=== PATIENT | male | born 1955 | race Caucasian/White ===

== ENCOUNTER 2017-07-02 22:00 | Emergency (ER) | payer OTHER ==
[~2017-07-02] VITALS: Ht 165.1 cm; Wt 62.3 kg
[~2017-07-02 22:00] MED LIST: B-1100 MG PO; CENTRUM1 TAB PO; FOLIC ACID 11 MG/TA1 PO; KLONOPIN 0.5MG0.5 MG PO; NORVASC 5MG5 MG/TAB PO; TOPROL XL200 MG PO; ZESTRIL40 MG PO
[2017-07-02 22:01] VITALS: TEMP 97.5
[2017-07-02] MEDS ORDERED: POTASSIUM GLUC595 M1 PO (22:11)
[2017-07-02] MEDS ORDERED: CALCIUM GLUCON500 MG ×2 (22:12→22:13)
[2017-07-02] MEDS ORDERED: TOPROL XL100 MG PO (22:13)
[2017-07-02 22:26] LABS: BASO % 0.1 % (0.0-2.0); GRAN # 6.7 (1.4-6.5); GRAN % 88.9 % (42.2-75.2); LYMPH # 0.4 (1.2-3.4); LYMPH % 5.6 % (20.0-51.0); MEAN CELL VOLUME 99 fl (80.0-100.0); MEAN CORPUSCULAR HGB CONC 34 g/dl (33.0-37.0); MEAN PLATELET VOLUME 9.6 fl (7.4-10.4); MONO # 0.4 (0.1-0.6); MONO % 4.9 % (1.7-9.3); PLATELET COUNT 144 K/mm3 (130-400); RED BLOOD COUNT 2.96 M/mm3 (4.20-5.60)
[2017-07-02 22:27] LABS: HEMATOCRIT 29.2 % (42.0-52.0); HEMOGLOBIN 9.8 g/dl (13.5-18.0); MEAN CORPUSCULAR HEMOGLOBIN 33 pg (27.0-31.0)
[2017-07-02 22:36] LABS: ALANINE AMINOTRANSFERASE 52 U/L (21-72); ALBUMIN 3.7 gm/dL (3.5-5.0); ALKALINE PHOSPHATASE 151 U/L (50-136); ANION GAP 16 mmol/L (7-16); AST,SGOT 147 U/L (15-37); BILIRUBIN,TOTAL 1.9 mg/dL (0.0-1.0); BLOOD UREA NITROGEN 15 mg/dL (9-20); CALCIUM 11.4 mg/dL (8.4-10.2); CARBON DIOXIDE 17 mmol/L (22-30); CHLORIDE 98 mmol/L (98-107); CREATININE, serum 0.75 mg/dL (0.66-1.25); GLUCOSE 138 mg/dL (74-106); MAGNESIUM 1.8 mg/dL (1.6-2.3); PHOSPHOROUS 1.2 mg/dL (2.5-4.5); SODIUM 131 mmol/L (137-145); TOTAL PROTEIN 7.5 gm/dL (6.4-8.2)
[2017-07-02 22:38] LABS: INR 1.1 (0.8-3.0); PROTHROMBIN TIME 13.3 SECONDS (9.7-12.8)
[2017-07-02 22:40] LABS: PARTIAL THROMBOPLASTIN TIME 25.9 SECONDS (26.0-37.0)
[2017-07-02 22:48] LABS: TROPONIN-I < 0.012 ng/mL (0.000-0.034)
[2017-07-02 23:16] LABS: LIPASE 15932 U/L (23-300)
[2017-07-03 01:39] VITALS: BP 136/86; PULSE 86
== END 2017-07-03 01:46 | disposition short-term general hospital (02) ==
LOC: COL.ER 22:00
PROVIDERS: Emergency Medicine
DX: S06.5X0A Traumatic subdural hemorrhage without loss of consciousness, initial encounter (principal); I10 Essential (primary) hypertension; I95.1 Orthostatic hypotension; E87.6 Hypokalemia; E87.1 Hypo-osmolality and hyponatremia; E83.51 Hypocalcemia; E83.39 Other disorders of phosphorus metabolism; E86.0 Dehydration; F17.210 Nicotine dependence, cigarettes, uncomplicated; W18.39XA Other fall on same level, initial encounter; W22.8XXA Striking against or struck by other objects, initial encounter
CPT/HCPCS: J3411; J7030; J7040

== ENCOUNTER 2018-01-28 23:42 | Observation (INO) | payer OTHER ==
[~2018-01-28] VITALS: Ht 167.6 cm; Wt 62.0 kg
[~2018-01-28 23:42] MED LIST changes: +CALCIUM GLUCON500 MG; +LOPRESSOR100 MG PO; +POTASSIUM GLUC595 M1 PO
[2018-01-28 23:57] LABS: BASO % 0.4 % (0.0-2.0); EOS # 0.1 (0.0-0.7); EOS % 1.4 % (0-4.0); GRAN # 4.9 (1.4-6.5); GRAN % 61.4 % (42.2-75.2); HEMATOCRIT 32.8 % (42.0-52.0); HEMOGLOBIN 11.5 g/dl (13.5-18.0); LYMPH % 24.8 % (20.0-51.0); MEAN CELL VOLUME 93 fl (80.0-100.0); MEAN CORPUSCULAR HEMOGLOBIN 33 pg (27.0-31.0); MEAN CORPUSCULAR HGB CONC 35 g/dl (33.0-37.0); MONO # 0.9 (0.1-0.6); MONO % 11.4 % (1.7-9.3); PLATELET COUNT 195 K/mm3 (130-400); RED BLOOD COUNT 3.54 M/mm3 (4.20-5.60); REDCELL DISTRIBUTION WIDTH-CV 13.6 % (11.5-14.5)
[2018-01-29 00:02] LABS: INR 1.1 (0.8-3.0); PROTHROMBIN TIME 12.8 SECONDS (9.7-12.8)
[2018-01-29 00:04] LABS: PARTIAL THROMBOPLASTIN TIME 33.4 SECONDS (26.0-37.0)
[2018-01-29 00:07] LABS: ALBUMIN 3.6 gm/dL (3.5-5.0); BILIRUBIN,TOTAL 1.7 mg/dL (0.0-1.0); CALCIUM 8.1 mg/dL (8.4-10.2); CREATININE, serum 0.83 mg/dL (0.66-1.25); POTASSIUM 4.4 mmol/L (3.4-5.0); TOTAL PROTEIN 7.6 gm/dL (6.4-8.2)
[2018-01-29] MEDS ORDERED: MULTIVITAMIN SEN PO (00:07)
[2018-01-29] MEDS ORDERED: FOLIC ACID 40400 MCG PO (00:08)
[2018-01-29] MEDS ORDERED: K-PHOS ORIGINA500 MG PO (00:09)
[2018-01-29] MEDS ORDERED: ASPIRIN 81M81 MG/TA2 PO (00:10)
[2018-01-29] MEDS ORDERED: NATURE'S BLEND100 M2 PO (00:11)
[2018-01-29] MEDS ORDERED: CIALIS20 MG PO (00:12)
[2018-01-29] MEDS ORDERED: K-DUR20 MEQ PO (00:12)
[2018-01-29] MEDS ORDERED: LASIX 20MG TABL20 MG PO (00:14)
[2018-01-29] MEDS ORDERED: PEPCID 20MG TAB20 MG PO (00:14)
[2018-01-29] MEDS ORDERED: CORDARONE200 MG/TAB PO (00:15)
[2018-01-29 03:10] VITALS: BP 121/60; PULSE 72; TEMP 98.1
[2018-01-29 07:32] VITALS: BP 115/54; PULSE 61; TEMP 98.1
[2018-01-29 11:19] VITALS: BP 138/63; PULSE 74; TEMP 98.3
[2018-01-29] MEDS ORDERED: AMOXICILLIN 8751 TAB PO (12:30)
[2018-01-29] MEDS ORDERED: MOTRIN 600600 MG/TAB PO (14:47)
[2018-01-29] MEDS ORDERED: ROXICODONE 55 MG/TAB PO (14:47)
[2018-01-29 16:10] VITALS: BP 176/65; PULSE 81; TEMP 98.3
[2018-01-29 20:09] VITALS: BP 168/68; PULSE 81; TEMP 97.8
[2018-01-29 23:17] VITALS: BP 169/73; PULSE 79; TEMP 99.3
[2018-01-30 03:20] VITALS: BP 152/66; PULSE 68; TEMP 98.7
[2018-01-30 07:46] VITALS: BP 165/72; PULSE 62; TEMP 98.4
[2018-01-30 11:26] VITALS: BP 161/68; PULSE 70; TEMP 98.4
[2018-01-30 15:48] VITALS: BP 155/70; PULSE 61; TEMP 98.7
[2018-01-30 19:48] VITALS: BP 159/63; PULSE 60; TEMP 98.2
[2018-01-30 23:52] VITALS: BP 156/65; PULSE 59; TEMP 98.2
[2018-01-31 03:08] VITALS: BP 168/70; PULSE 66; TEMP 97.9
[2018-01-31 08:00] VITALS: BP 160/74; PULSE 62; TEMP 98
[2018-01-31 11:42] VITALS: BP 154/61; PULSE 59; TEMP 98
[2018-01-31 15:45] VITALS: BP 151/67; PULSE 64; TEMP 98.2
[2018-01-31 19:38] VITALS: BP 150/72; PULSE 66; TEMP 98.5
[2018-01-31 21:55] VITALS: BP 165/74; PULSE 65; TEMP 98.2
[2018-02-01] VITALS (8 sets, daily range): BP systolic 119–170; BP diastolic 61–72; PULSE 58–66; TEMP 97.5–98.5
== END 2018-02-01 15:05 | disposition home or self-care (01) ==
LOC: COL.ER 23:42 → SURG 01-29 00:59
PROVIDERS: Emergency Medicine
DX: S02.32XA Fracture of orbital floor, left side, initial encounter for closed fracture (principal); S02.2XXA Fracture of nasal bones, initial encounter for closed fracture; S01.112A Laceration without foreign body of left eyelid and periocular area, initial encounter; W10.8XXA Fall (on) (from) other stairs and steps, initial encounter; F10.129 Alcohol abuse with intoxication, unspecified; Y90.8 Blood alcohol level of 240 mg/100 ml or more; Y92.009 Unspecified place in unspecified non-institutional (private) residence as the place of occurrence of the external cause; Z87.891 Personal history of nicotine dependence; R40.2413 Glasgow coma scale score 13-15, at hospital admission; E44.0 Moderate protein-calorie malnutrition; I10 Essential (primary) hypertension; Z79.899 Other long term (current) drug therapy; Z79.82 Long term (current) use of aspirin; I48.91 Unspecified atrial fibrillation
CPT/HCPCS: G0378; G8978-GP; G8979-GP; G8987-GO; G8988-GO; J2060; J2270; J7030

== ENCOUNTER 2018-12-25 16:33 | Inpatient (IN) | payer OTHER ==
[~2018-12-25] VITALS: Ht 165.1 cm; Wt 67.0 kg
[~2018-12-25 16:33] MED LIST changes: +AMOXICILLIN 8751 TAB PO; +ASPIRIN 81M81 MG/TA2 PO; +CIALIS20 MG PO; +CORDARONE200 MG/TAB PO; +FOLIC ACID 40400 MCG PO; +K-DUR20 MEQ PO; +K-PHOS ORIGINA500 MG PO; +LASIX 20MG TABL20 MG PO; +MOTRIN 600600 MG/TAB PO; +MULTIVITAMIN SEN PO; +NATURE'S BLEND100 M2 PO; +PEPCID 20MG TAB20 MG PO; +ROXICODONE 55 MG/TAB PO
[2018-12-25 17:36] LABS: HEMOGLOBIN 11.6 g/dl (13.5-18.0); MEAN CELL VOLUME 94 fl (80.0-100.0); MEAN CORPUSCULAR HEMOGLOBIN 33 pg (27.0-31.0); MEAN CORPUSCULAR HGB CONC 35 g/dl (33.0-37.0); MEAN PLATELET VOLUME 9.3 fl (7.4-10.4); PLATELET COUNT 235 K/mm3 (130-400); RED BLOOD COUNT 3.52 M/mm3 (4.20-5.60); REDCELL DISTRIBUTION WIDTH-CV 12.7 % (11.5-14.5)
[2018-12-25 17:38] LABS: HEMATOCRIT 32.9 % (42.0-52.0)
[2018-12-25 17:43] LABS: INR 1.5 (0.8-3.0); PROTHROMBIN TIME 17.7 SECONDS (9.7-12.8)
[2018-12-25 17:43] LABS: COLLECTION METHOD CLEAN CATCH
[2018-12-25 17:50] LABS: ALANINE AMINOTRANSFERASE 45 U/L (21-72); ALBUMIN 3.2 gm/dL (3.5-5.0); ALKALINE PHOSPHATASE 316 U/L (50-136); ANION GAP 15 mmol/L (7-16); AST,SGOT 155 U/L (15-37); BLOOD UREA NITROGEN 24 mg/dL (9-20); CALCIUM 8.2 mg/dL (8.4-10.2); CARBON DIOXIDE 20 mmol/L (22-30); GLUCOSE 81 mg/dL (74-106); LIPASE 139 U/L (23-300); MAGNESIUM 1.5 mg/dL (1.6-2.3); PHOSPHOROUS 4.5 mg/dL (2.5-4.5); POTASSIUM 4.7 mmol/L (3.4-5.0); SODIUM 121 mmol/L (137-145); TOTAL PROTEIN 8.2 gm/dL (6.4-8.2)
[2018-12-25 17:54] LABS: ALCOHOL(ethanol),MEDICAL < 10 mg/dL; CHLORIDE 87 mmol/L (98-107)
[2018-12-25 17:54] LABS: MUCOUS Present /lpf; PH 5 (5-8); SQUAMOUS EPITHELIAL 0-2 /hpf; URINE APPEARANCE Hazy; URINE BACTERIA None Seen /hpf; URINE BILIRUBIN Negative (NEGATIVE); URINE BLOOD 2+ (NEGATIVE); URINE COLOR Amber; URINE GLUCOSE Negative (NEGATIVE); URINE KETONE Negative (NEGATIVE); URINE LEUKOCYTE ESTERASE Negative (NEGATIVE); URINE NITRATE Negative (NEGATIVE); URINE PROTEIN(semi-quant) Negative (NEGATIVE); URINE RBC >50 /hpf; URINE UROBILINOGEN >=4.0 mg/dL (NEGATIVE)
[2018-12-25 18:00] LABS: BAND 21 % (0-10); LYMPHOCYTE 7 % (20.0-51.0); NEUTROPHILS 70 % (42.0-75.2); PLATELET ESTIMATE NORMAL (NORMAL)
[2018-12-25 18:17] LABS: C-REACTIVE PROTEIN 18.5 mg/dL (0.0-0.9)
[2018-12-25 19:26] LABS: ERYTHROCYTE SEDIMENTATION RATE 51 mm/hr (0-30)
--- NOTE | 2018-12-25 22:30 | NUR ---
Admitted to room 326 via stretcher from ER. Oriented to room and policy. Assessment complete. Seizure and withdrawl precautions initiated. Speech is slurred. Noted to have multiple scabs to upper extremities as well as bridge of nose. Bilateral lower extremities red, draining serosanguinous fluid- multiple ulcerations. Denies pain. Left side of scrotum/genitalia excoriated as well as rectal area. Poor historian-admission completed with as much info as providied. Spouse did call with medications but stated she wasnt sure if he took them all today or not. Patient states took at 0900. Call light within reach. Bed in low with alarm on.
[2018-12-25 23:42] VITALS: BP 124/85; PULSE 70; TEMP 97.7
[2018-12-25 23:45] VITALS: BP 152/71; PULSE 65; TEMP 97.8
[2018-12-26] VITALS (8 sets, daily range): BP systolic 97–125; BP diastolic 54–75; PULSE 59–70; TEMP 97.4–98.9
[2018-12-26 07:38] LABS: MEAN CELL VOLUME 95 fl (80.0-100.0); MEAN CORPUSCULAR HEMOGLOBIN 34 pg (27.0-31.0); MEAN CORPUSCULAR HGB CONC 36 g/dl (33.0-37.0); PLATELET COUNT 213 K/mm3 (130-400); RED BLOOD COUNT 3.25 M/mm3 (4.20-5.60); REDCELL DISTRIBUTION WIDTH-CV 12.8 % (11.5-14.5)
[2018-12-26 07:42] LABS: INR 1.5 (0.8-3.0); PROTHROMBIN TIME 17.9 SECONDS (9.7-12.8)
[2018-12-26 07:42] LABS: HEMATOCRIT 30.8 % (42.0-52.0)
[2018-12-26 07:49] LABS: ALBUMIN 2.8 gm/dL (3.5-5.0); BILIRUBIN,TOTAL 3.7 mg/dL (0.0-1.0); CALCIUM 7.4 mg/dL (8.4-10.2); CREATININE, serum 1.13 (0.66-1.25); MAGNESIUM 1.8 mg/dL (1.6-2.3); POTASSIUM 4.4 mmol/L (3.4-5.0); TOTAL PROTEIN 7.1 gm/dL (6.4-8.2)
[2018-12-26 09:03] LABS: BAND 13 % (0-10); LYMPHOCYTE 11 % (20.0-51.0); NEUTROPHILS 73 % (42.0-75.2)
[2018-12-26 09:05] LABS: PLATELET ESTIMATE NORMAL (NORMAL)
--- NOTE | 2018-12-26 10:00 | NUR ---
Patient alert and oriented, answers questions appropriately. See assessment. On alcohol detox protocol. Lungs decreased in bases, clear in upper lobes. BLE with redness and drainage noted, refuses to leave DIONNA wraps on legs. BLE pulses weak but palpable.
--- NOTE | 2018-12-26 15:00 | NUR ---
Patient returns from chest tube placement. Chest tube in place to left chest wall connected to LIS, bubbling noted. Left lungs decreased. Patient agitated and pulling at tube. Etoh detox score increased, ativan given.
--- NOTE | 2018-12-26 15:00 | NUR ---
WINSTON met with patient and his to discuss discharge plan. He currently lives at home with his . He reports that he drinks and is interested in detox and inpatient treatment. SW provided a list of options to them and they are going to look over it. WINSTON will follow up with them and send referrals for them.
[2018-12-26 17:54] LABS: CALCIUM 7.2 mg/dL (8.4-10.2); CREATININE, serum 1.07 (0.66-1.25); POTASSIUM 4.1 mmol/L (3.4-5.0)
--- NOTE | 2018-12-26 20:00 | NUR ---
Report received. 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 Assessment complete. Left chest tube to low continuous suction. Dressimg completely saturated and changed at this time. IV to right forearm infiltrated-edema kvyge-qstbdqs-vdjreuz-wont flush. Will attempt restart. Hallucinations picking at air. Tremors noted-restless. VS remain stable. Antibiotics held until new IV access.
[2018-12-27] VITALS (9 sets, daily range): BP systolic 90–125; BP diastolic 42–89; PULSE 68–84; TEMP 97.1–98.1
--- NOTE | 2018-12-27 05:00 | NUR ---
Water seal full at 1900-output for this shift so far has been 600-yellow with small clots. Changed at this time by XI Tobar. Tolerated well.
--- NOTE | 2018-12-27 08:00 | NUR ---
PATIENT IS DROWSY THIS MORNING, BUT AROUSES TO NAME. PATIENT IS A&OX3, PATIENT STATES THAT HE DOES NOT KNOW WHERE HE IS. VSS. GENERALIZED WEAKNESS NOTED. BOWEL SOUNDS ACTIVE ALL FOUR QUADRANTS. DYSPNEA AT RESTING WITH GRUNTING NOTED. O2 VIA NASAL CANNULA. LEFT LOWER LUNG LOBE DIMINISHE UPON AUSCULTATION. ALL LUNG RAYMUNDO COARSE UPON AUSCULTATION. LEFT CHEST TO TUBE WATERSEAL AT 20 CM OF SUCTION WITH YELLOW DRAINAGE PRESENT IN CANISTER. LEFT CHEST TUBE INCISION DRESSED WITH GAUZE & OCCLUSIVE TAPE AND IS CD&I. 3+ PITTING EDEMA TO BLE. 2+ EDEMA TO RIGHT HAND. 1+ EDEMA TO RIGHT HAND. 3+ EDEMA TO FEET BILATERALLY. REDNESS AND IRRITATION TO SACRUM NOTED. REDDENED RASH TO LEFT GROIN NOTED. REDDENED, OPEN, WEEPING SKIN TO BLE. LACERATION TO NOSE WITH CLOSED SCABS. DIFFUSE BRUSING OVER BODY NOTED. LEFT AC TO INT. CALL LIGHT WITHIN REACH. SEIZURE PADS IN PLACE. PATIENT DENIES ANY NEEDS AT THIS TIME.
[2018-12-27 08:20] LABS: HEMOGLOBIN 10.2 g/dl (13.5-18.0); MEAN CELL VOLUME 95 fl (80.0-100.0); MEAN CORPUSCULAR HEMOGLOBIN 33 pg (27.0-31.0); MEAN CORPUSCULAR HGB CONC 35 g/dl (33.0-37.0); MEAN PLATELET VOLUME 9.3 fl (7.4-10.4); PLATELET COUNT 176 K/mm3 (130-400); RED BLOOD COUNT 3.09 M/mm3 (4.20-5.60); REDCELL DISTRIBUTION WIDTH-CV 12.9 % (11.5-14.5)
[2018-12-27 08:22] LABS: HEMATOCRIT 29.3 % (42.0-52.0)
[2018-12-27 08:28] LABS: INR 1.5 (0.8-3.0); PROTHROMBIN TIME 17.2 SECONDS (9.7-12.8)
[2018-12-27 08:33] LABS: ALBUMIN 2.3 gm/dL (3.5-5.0); BILIRUBIN,TOTAL 2.6 mg/dL (0.0-1.0); CALCIUM 7.2 mg/dL (8.4-10.2); CREATININE, serum 1.63 (0.66-1.25); MAGNESIUM 1.8 mg/dL (1.6-2.3); POTASSIUM 4.7 mmol/L (3.4-5.0)
[2018-12-27 08:50] LABS: BAND 15 % (0-10); BASOPHIL 1 % (0-2); EOSINOPHIL 1 % (0-4); LYMPHOCYTE 8 % (20.0-51.0); NEUTROPHILS 72 % (42.0-75.2); PLATELET ESTIMATE NORMAL (NORMAL)
[2018-12-27 14:37] LABS: CREATININE, serum 1.89 (0.66-1.25)
--- NOTE | 2018-12-27 19:00 | NUR ---
REPORT GIVEN TO XI CAMPOS.
--- NOTE | 2018-12-27 20:00 | NUR ---
Report received. Assumed care for restaurant shift leader. Assessment complete. VS stable. Repositioned at this time with incontinent care. Chest tube to 20cm of suction. Serous return. Dressing C/D/I. Spouse here at this time. Very tearful stating she just cant believe it has come to this. States she is angry and feels bad for that. Did sit and talk with her for approx 20minutes reassuring her that her feelings are normal and to allow herself to work through them. States she wont let him come home unless he goes to rehab first. IV fluids infusing at 100ml/hr without difficulty. Edema noted to upper extremities. Coarse lung nuno bilat. O2 at 0.5l/NC. Not oriented at this time-occasional grunting and incoherent babble. Bed in low position. Call light within reach and alarm on. Will monitor.
--- NOTE | 2018-12-27 20:00 | NUR ---
Report received. Assumed care for manufacturing shift supervisor. Assessment complete. VS stable. Received ativan at 1800 for detox score of 6-slightly confused-responds to loud voice and touch. Water seal chest tube at 20cm suction. Clear yellow fluid. Noted to have edema to upper extremities. Incontinence care provided-large urine. Bilateral lower extremities draining as well-blisters ruptured.
--- NOTE | 2018-12-28 02:00 | NUR ---
Chest tube to water seal at this time per dr order.
[2018-12-28 04:00] VITALS: BP 98/53; PULSE 85; TEMP 97.6
--- NOTE | 2018-12-28 06:53 | NUR ---
Report given to XI Arechiga.
[2018-12-28 08:32] VITALS: BP 122/99; PULSE 88; TEMP 97.4
[2018-12-28 09:51] LABS: HEMATOCRIT 30.7 % (42.0-52.0); HEMOGLOBIN 10.7 g/dl (13.5-18.0); MEAN CELL VOLUME 96 fl (80.0-100.0); MEAN CORPUSCULAR HEMOGLOBIN 34 pg (27.0-31.0); MEAN CORPUSCULAR HGB CONC 35 g/dl (33.0-37.0); MEAN PLATELET VOLUME 8.8 fl (7.4-10.4); PLATELET COUNT 188 K/mm3 (130-400); RED BLOOD COUNT 3.19 M/mm3 (4.20-5.60); REDCELL DISTRIBUTION WIDTH-CV 13.4 % (11.5-14.5)
[2018-12-28 10:06] LABS: CALCIUM 7.3 mg/dL (8.4-10.2); CREATININE, serum 1.69 (0.66-1.25); POTASSIUM 4.1 mmol/L (3.4-5.0)
[2018-12-28 10:23] LABS: EOSINOPHIL 3 % (0-4); LYMPHOCYTE 11 % (20.0-51.0); NEUTROPHILS 81 % (42.0-75.2); PLATELET ESTIMATE NORMAL (NORMAL)
--- NOTE | 2018-12-28 11:13 | NUR ---
Pt resting in bed with eyes closed and even unlabored breathing. Audible course lung sounds. Pt is not able to comprehend to deep cough to help clear lungs. IV to left AC flushes with noted blood return. Bilateral lower extremities with open blisters of all stages from new to healing. O2 at 1 liter per NC. Chest tube to water seal with serous output. Seizure pads on all 4 side rails. Will continue to monitor
--- NOTE | 2018-12-28 11:36 | NUR ---
SW attended clinical rounding. Patient is improving but will need rehab at discharge as he is weak. SW made IPR screen referral. Will continue to follow.
--- NOTE | 2018-12-28 11:49 | NUR ---
Fabiola Bishop CNA assist with bed bath and linen change. Pt tolerated well, but did not wake up. Positioned to his right side. Bed alarm on and all side rails up with seizure pads on.
--- NOTE | 2018-12-28 12:15 | NUR ---
REPORT RECEIVED FROM FILIPPO LAYNE. CARE ASSUMED.
[2018-12-28 12:52] VITALS: BP 116/48; PULSE 77; TEMP 97.4
--- NOTE | 2018-12-28 13:30 | NUR ---
PT HAS MULTIPLE OPEN AREAS TO BILTERAL LOWER EXTREMITIES. AREA TO LEFT HEEL OPEN AND RED. PT RECENTLY DX WITH CELLULITIS. LEGS ARE REDDENED AND TENDER. NO EDEMA NOTED. LEFT LEG WRAPPED WITH DIONNA, COBAIN APPLIED TO RIGHT LEG.
[2018-12-28 15:59] VITALS: BP 111/42; PULSE 81; TEMP 98.9
--- NOTE | 2018-12-28 18:10 | NUR ---
PT HAS BREAKDOWN NOTED TO BILATERAL BUTT CHECKS NEAR RECTUM. AREA COVERED WITH FOAM MEPLIX PAD. PT HAS VERY MOIST, GURGLED SOUNDS UPON EXPIRATION. ATTEMPTED TO ENCOURAGE PATIENT TO COUGH HOWEVER PT NOT FOLLOWING COMMANDS. ATTEMPTED TO ORALLY SUCTION WITH YANKAUR BUT LITTLE SPUTUM RETURNED.
[2018-12-28 20:20] VITALS: BP 118/51; PULSE 91; TEMP 97.8
[2018-12-28 22:45] LABS: BASO # 0.1 (0.0-0.2); BASO % 0.4 % (0.0-2.0); EOS # 0.1 (0.0-0.7); EOS % 0.3 % (0-4.0); GRAN # 16.5 (1.4-6.5); GRAN % 84.1 % (42.2-75.2); HEMATOCRIT 29.5 % (42.0-52.0); HEMOGLOBIN 10.3 g/dl (13.5-18.0); LYMPH # 1.6 (1.2-3.4); LYMPH % 8.2 % (20.0-51.0); MEAN CELL VOLUME 96 fl (80.0-100.0); MEAN CORPUSCULAR HEMOGLOBIN 34 pg (27.0-31.0); MEAN CORPUSCULAR HGB CONC 35 g/dl (33.0-37.0); MONO # 1.1 (0.1-0.6); MONO % 5.6 % (1.7-9.3); PLATELET COUNT 162 K/mm3 (130-400); RED BLOOD COUNT 3.07 M/mm3 (4.20-5.60); REDCELL DISTRIBUTION WIDTH-CV 13.7 % (11.5-14.5)
[2018-12-28 22:56] LABS: ALBUMIN 2.4 gm/dL (3.5-5.0); BILIRUBIN,TOTAL 2.6 mg/dL (0.0-1.0); CALCIUM 7.2 mg/dL (8.4-10.2); CREATININE, serum 2.14 (0.66-1.25); POTASSIUM 4.1 mmol/L (3.4-5.0); TOTAL PROTEIN 6.3 gm/dL (6.4-8.2)
[2018-12-28 23:04] VITALS: BP 109/53; PULSE 94; TEMP 97.9
[2018-12-28 23:51] LABS: ARTERIAL BLD GAS TCO2 CT 12.6; ARTERIAL BLOOD GAS BASE EXCESS -11.4 (-2-2); ARTERIAL BLOOD GAS HCO3 11.9 meq/L (22-26); ARTERIAL BLOOD GAS PO2 71.1 mmHg (80-100); ARTERIAL BLOOD GAS pH 7.35 (7.35-7.45)
[2018-12-28 23:53] LABS: ARTERIAL BLOOD GAS PCO2 22.2 mmHg (35-45)
[2018-12-29] VITALS (583 sets, daily range): BP systolic 102–134; BP diastolic 42–64; PULSE 75–93; TEMP 9.5; O2SAT 80–100
--- NOTE | 2018-12-29 01:15 | NUR ---
At 2100 patient's oxygen saturation noted to be 84%. Oxygen increased to 4L and saturation noted to come up to 90% for a couple seconds, then fall and stay around 87-88%. RT and Nuris updated on patient condition. RT and Nuris in patient's room assessing patient. ABGs ordered and chest xray ordered and obtained. Oxygen at 6L via oxymask. Patient crackles and rhonchi heard without stethoscope. Chest tube to suction. Dr. Ny notified and ordered to place chest tube to 20cm suction and to obtain a chest xray one hour after suction started. Patient nonverbal at this time and does not open his eyes to verbal stimuli. When staff reposition patient, patient groans and will open his eyes slightly. Respiratory therapy provided deep suction, with this nurse as assist. Specimen sent to lab for cultures. Off-white colored sputum present. Patient has decreased audible crackles, but these returned about 30 minutes after suction completed. Repeat chest xray "not any better" per Nuris. Orders to send to ICU received. , Nicol updated via phone. States she will be in tomorrow morning. Report called to Phyllis in ICU. Patient transferred to ICU at 0130. Nuris at bedside. Patient a little more alert and will open eyes for a short period of time to verbal stimuli.
[2018-12-29 06:56] LABS: HEMOGLOBIN 10.1 g/dl (13.5-18.0); MEAN CELL VOLUME 99 fl (80.0-100.0); MEAN CORPUSCULAR HEMOGLOBIN 34 pg (27.0-31.0); MEAN CORPUSCULAR HGB CONC 34 g/dl (33.0-37.0); MEAN PLATELET VOLUME 9.2 fl (7.4-10.4); PLATELET COUNT 162 K/mm3 (130-400); RED BLOOD COUNT 2.99 M/mm3 (4.20-5.60)
[2018-12-29 06:59] LABS: HEMATOCRIT 29.5 % (42.0-52.0)
[2018-12-29 07:10] LABS: ALBUMIN 2.4 gm/dL (3.5-5.0); BILIRUBIN,TOTAL 2.6 mg/dL (0.0-1.0); CALCIUM 7.3 mg/dL (8.4-10.2); CREATININE, serum 2.16 (0.66-1.25); POTASSIUM 4.2 mmol/L (3.4-5.0); TOTAL PROTEIN 6.3 gm/dL (6.4-8.2)
[2018-12-29 07:30] LABS: BAND 3 % (0-10); LYMPHOCYTE 6 % (20.0-51.0); NEUTROPHILS 91 % (42.0-75.2); PLATELET ESTIMATE NORMAL (NORMAL)
--- NOTE | 2018-12-29 07:45 | NUR ---
Bedside report received from XI Cerda.
--- NOTE | 2018-12-29 08:00 | NUR ---
Assessment completed. Pt remains very lethargic. Opens eyes briefly to name. Only responds, "yeah" to questions. Squeezes hands on command. Pt falls back asleep when not stimulated. Left chest tube to suction. Serosanguinous drainage from Ct. Occlusive drsg C/D/I, no air leak present. Pt has multiple scabs, bruising all over body. bilat ankles wrapped with ester bandage, C/D/I. pt incontinent of urine. chux changed, barrier cream applied to coccyx, new mepilex placed. VSS. Will monitor.
--- NOTE | 2018-12-29 10:10 | NUR ---
PROPOFOL GTT INTITIATED PER DR LEMUS'S VERBAL ORDERS AFTER INTUBATION.
--- NOTE | 2018-12-29 11:00 | NUR ---
Dr Rousseau at bedside to see pt at 0945. Pt's called and updated on pt. telephone consent received for intubation and central line placement. Dr Rousseau and RT in room. Pt remains very lethargic. Bagging pt at 0956, see rapid sedation kit form for medications. Pt intubated by Dr Rousseau at 0958 with 8.0 ETT, 26 at the lip. bilat breath sounds auscultated by RT. Pt on ventilator AC rate 22, vt 450, peep 5, fio2 50%. O2 sats 100%. Propofol gtt started for sedation per Dr Rousseau's orders at 1010. Right IJ central line placed by Dr Rousseau at 1030. Radiology called for CXR for placement. 16 fr OGT placed, 65 at lip. Placement verified by auscultation. CXR done at bedside at 1100.
[2018-12-29 11:14] LABS: ARTERIAL BLD GAS TCO2 CT 15.7; ARTERIAL BLOOD GAS BASE EXCESS -10.9 (-2-2); ARTERIAL BLOOD GAS HCO3 14.7 meq/L (22-26); ARTERIAL BLOOD GAS PCO2 32.4 mmHg (35-45); ARTERIAL BLOOD GAS PO2 106.8 mmHg (80-100); ARTERIAL BLOOD GAS pH 7.27 (7.35-7.45)
--- NOTE | 2018-12-29 12:00 | NUR ---
16 fr law placed by sterile technique at bedside. Clear, reed urine out. Pt remains sedated, on ventilator. Pt's at bedside. Updated on pt status, emotional support provided.
[2018-12-29 12:11] LABS: CALCIUM 7.4 mg/dL (8.4-10.2); CREATININE, serum 2.08 (0.66-1.25); MAGNESIUM 2.3 mg/dL (1.6-2.3); PHOSPHOROUS 5.9 mg/dL (2.5-4.5); POTASSIUM 3.9 mmol/L (3.4-5.0)
--- NOTE | 2018-12-29 13:34 | NUR ---
SW attended clinical rounds. Patient was tranferred to the ICU late last night and intubated. SW will continue to follow.
--- NOTE | 2018-12-29 15:00 | NUR ---
REPORT RECIEVED ON PATIENT FROM XI GARCIA.
--- NOTE | 2018-12-29 15:27 | NUR ---
report given to XI Nelson.
[2018-12-29 15:40] LABS: ARTERIAL BLD GAS O2 SATURATION 95.9 % (92-100); ARTERIAL BLD GAS TCO2 CT 15.2; ARTERIAL BLOOD GAS BASE EXCESS -9.9 (-2-2); ARTERIAL BLOOD GAS HCO3 14.4 meq/L (22-26); ARTERIAL BLOOD GAS PCO2 27.1 mmHg (35-45); ARTERIAL BLOOD GAS PO2 93.1 mmHg (80-100); ARTERIAL BLOOD GAS pH 7.34 (7.35-7.45)
--- NOTE | 2018-12-29 19:00 | NUR ---
BEDSIDE REPORT GIVEN TO XI VERA.
--- NOTE | 2018-12-29 20:29 | NUR ---
UNABLE TO ACESS INTRINSIC PEEP. WILL CONTINUE TO MONITOR AND TRY TO CHECK FOR NEXT VENT CHECK.
--- NOTE | 2018-12-29 21:00 | NUR ---
Bandage to BLE changed. The guaze in place was dried and was sticking to the skin. Area cleansed with saline to help remove the bandages. The skin is flaking and peeling around the foot and ankles. The backs of the ankles up to the mid calf on both legs has large open area with a pink wound bed. Patches of dark dried skin present in wounds. Non stick dressing applied and wrapped in guaze.
--- NOTE | 2018-12-29 22:47 | NUR ---
E-care nurse notified of patient's low urine output over the shift. Awaiting further orders.
[2018-12-30] VITALS (746 sets, daily range): BP systolic 119–142; BP diastolic 51–69; PULSE 80–96; TEMP 97.4–99.1; O2SAT 90–100
--- NOTE | 2018-12-30 01:46 | NUR ---
DISCONNECTED RECTAL TEMP PROBE FROM MONITOR. AFTER REPOSITIONING, READINGS WERE FLUCTUATING FREQUENTLY AND SEVERAL DEGREES AT A TIME. AXILLARY TEMP WAS 97.4. WILL CONTINUE TO MONITOR.
--- NOTE | 2018-12-30 03:36 | NUR ---
Followed up with E-ICU regarding low urine output. Output has not had much improvement after bolus and albumin. BP has slightly increased from baseline of 100's systolic to around 115 systolic. Awaiting further orders.
--- NOTE | 2018-12-30 04:10 | NUR ---
Observed patient open eyes spontaneously during assessment. Patient able to squeeze nurses hands on command. This is the first time patient has opened eyes and followed any commands this shift. Will continue to monitor.
[2018-12-30 05:07] LABS: ARTERIAL BLD GAS O2 SATURATION 98.1 % (92-100); ARTERIAL BLD GAS TCO2 CT 15.1; ARTERIAL BLOOD GAS BASE EXCESS -9.7 (-2-2); ARTERIAL BLOOD GAS HCO3 14.3 meq/L (22-26); ARTERIAL BLOOD GAS PCO2 24.7 mmHg (35-45); ARTERIAL BLOOD GAS pH 7.38 (7.35-7.45)
[2018-12-30 05:08] LABS: ARTERIAL BLOOD GAS PO2 140.9 mmHg (80-100)
[2018-12-30 05:15] LABS: BASO % 0.1 % (0.0-2.0); GRAN # 10.4 (1.4-6.5); GRAN % 88.1 % (42.2-75.2); LYMPH # 0.9 (1.2-3.4); LYMPH % 7.2 % (20.0-51.0); MEAN CELL VOLUME 96 fl (80.0-100.0); MEAN CORPUSCULAR HGB CONC 36 g/dl (33.0-37.0); MEAN PLATELET VOLUME 9.3 fl (7.4-10.4); MONO # 0.4 (0.1-0.6); MONO % 3.6 % (1.7-9.3); PLATELET COUNT 118 K/mm3 (130-400); RED BLOOD COUNT 2.26 M/mm3 (4.20-5.60); REDCELL DISTRIBUTION WIDTH-CV 13.9 % (11.5-14.5)
[2018-12-30 05:30] LABS: ALBUMIN 2.4 gm/dL (3.5-5.0); BILIRUBIN,TOTAL 1.7 mg/dL (0.0-1.0); CALCIUM 7.4 mg/dL (8.4-10.2); CREATININE, serum 2.42 (0.66-1.25); MAGNESIUM 2.2 mg/dL (1.6-2.3); PHOSPHOROUS 4.3 mg/dL (2.5-4.5); TOTAL PROTEIN 5.6 gm/dL (6.4-8.2)
--- NOTE | 2018-12-30 05:41 | NUR ---
PT HAS NOT BEEN INTUBATED FOR MORE THAN 24 HOURS THEREFORE WEANING TRIAL IS NOT DONE. DUE TO PTS ABG RESULTS 02 WAS TURNED DOWN FROM 50% TO 40% PT IS REUBEN WELL AND THERE IS NO DISTRESS NOTED
[2018-12-30 05:53] LABS: HEMATOCRIT 21.6 % (42.0-52.0); HEMOGLOBIN 7.7 g/dl (13.5-18.0); MEAN CORPUSCULAR HEMOGLOBIN 34 pg (27.0-31.0)
--- NOTE | 2018-12-30 07:15 | NUR ---
Received bedside report from XI Porter.
--- NOTE | 2018-12-30 11:00 | NUR ---
PATIENT'S FAMILY HERE TO SEE PATIENT THIS MORNING. THEY HAVE SPOKEN TO DANIEL ELLISON, AND EDGARDO REGARDING HIS PLAN OF CARE. QUESTIONS ANSWERED. WILL CONTINUE TO MONITOR.
--- NOTE | 2018-12-30 13:00 | NUR ---
NO CHANGE TO PATIENT'S PLAN OF CARE REGARDING VENTILATOR. CONTINUE WITH VENTILATOR AT THIS TIME.
[2018-12-30 15:22] LABS: COLLECTION METHOD CLEAN CATCH
[2018-12-30 15:31] LABS: MUCOUS Present /lpf; PH 5 (5-8); SQUAMOUS EPITHELIAL 0-2 /hpf; URINE APPEARANCE Hazy; URINE BACTERIA Rare /hpf; URINE BILIRUBIN Negative (NEGATIVE); URINE BLOOD 3+ (NEGATIVE); URINE COLOR Yellow; URINE GLUCOSE Negative (NEGATIVE); URINE KETONE Negative (NEGATIVE); URINE LEUKOCYTE ESTERASE Negative (NEGATIVE); URINE NITRATE Negative (NEGATIVE); URINE PROTEIN(semi-quant) 1+ (NEGATIVE); URINE RBC >50 /hpf; URINE UROBILINOGEN Negative (NEGATIVE)
[2018-12-30 15:45] LABS: CREATININE, serum 2.52 (0.66-1.25); SODIUM 137 mmol/L (137-145)
--- NOTE | 2018-12-30 17:00 | NUR ---
BILATERAL LEG WOUNDS REDRESSED AT THIS TIME USING PETROLEUM GAUZE, TELFA, AND KERLEX. CHUX PADS PLACED UNDER ARMS AND LEGS D/T WEEPING.
--- NOTE | 2018-12-30 18:30 | NUR ---
RESIDUALS RECHECKED PER PROTOCOL. RESIDUAL 220 CC. CONTINUE TO HOLD TUBE FEEDS UNTIL RESIDUAL CHECK AT 20:00 SHIFT ASSESSMENT
--- NOTE | 2018-12-30 19:23 | NUR ---
REPORT GIVEN TO XI VERA. LINES, GTTS, TUBES, VENT SETTINGS REVIEWED. CARE TURNED OVER AT THIS TIME.
--- NOTE | 2018-12-30 20:00 | NUR ---
Assessment completed at this time. Responds to physical stimulation, but does not follow verbal commands at this time. Will continue to monitor. No other concerns.
--- NOTE | 2018-12-30 21:00 | NUR ---
Residual from OG noted to be 220. Tube feeding on hold since 1600 due to high residuals. Will continue to hold feedings at this time. Will re-check with next assessment.
[2018-12-31] VITALS (615 sets, daily range): BP systolic 121–155; BP diastolic 51–89; PULSE 81–95; TEMP 97.7–98.3; O2SAT 64–100
--- NOTE | 2018-12-31 05:00 | NUR ---
Residual from OG 10 ml. Re-started tube feed at 15 ml/hr. Chest tube atrium nearly full with drainage. Changed out atrium at this time.
[2018-12-31 05:14] LABS: ARTERIAL BLD GAS O2 SATURATION 96.1 % (92-100); ARTERIAL BLD GAS TCO2 CT 19.8; ARTERIAL BLOOD GAS BASE EXCESS -4.3 (-2-2); ARTERIAL BLOOD GAS HCO3 18.9 meq/L (22-26); ARTERIAL BLOOD GAS PCO2 28.5 mmHg (35-45); ARTERIAL BLOOD GAS PO2 85.7 mmHg (80-100); ARTERIAL BLOOD GAS pH 7.44 (7.35-7.45)
[2018-12-31 05:16] LABS: MEAN CELL VOLUME 95 fl (80.0-100.0); MEAN CORPUSCULAR HGB CONC 36 g/dl (33.0-37.0); MEAN PLATELET VOLUME 9.3 fl (7.4-10.4); PLATELET COUNT 101 K/mm3 (130-400); RED BLOOD COUNT 2.52 M/mm3 (4.20-5.60)
[2018-12-31 05:17] LABS: HEMOGLOBIN 8.6 g/dl (13.5-18.0); MEAN CORPUSCULAR HEMOGLOBIN 34 pg (27.0-31.0)
[2018-12-31 05:26] LABS: ALBUMIN 2.5 gm/dL (3.5-5.0); BILIRUBIN,TOTAL 2.2 mg/dL (0.0-1.0); CALCIUM 8.1 mg/dL (8.4-10.2); CREATININE, serum 2.04 (0.66-1.25); MAGNESIUM 2.4 mg/dL (1.6-2.3); PHOSPHOROUS 3.3 mg/dL (2.5-4.5); POTASSIUM 3.4 mmol/L (3.4-5.0); TOTAL PROTEIN 5.9 gm/dL (6.4-8.2)
[2018-12-31 05:50] LABS: BAND 7 % (0-10); LYMPHOCYTE 6 % (20.0-51.0); METAMYELOCYTE 1 % (0-0); NEUTROPHILS 85 % (42.0-75.2); PLATELET ESTIMATE DECREASED (NORMAL)
[2018-12-31 05:52] LABS: TARGET CELLS 1+
--- NOTE | 2018-12-31 07:15 | NUR ---
Bedside report received from XI Hale. Patient repositioned at this time. He has had a bowel movement. He is cleaned, new sheets applied. IV lines, all tubes, drips, and vent settings reviewed. Care taken over at this time.
--- NOTE | 2018-12-31 12:00 | NUR ---
patient continues to do about the same. Urine output today is better than yesterday. He remains hemodynamically stable and afebrile. and daughter updated by myself and Dr. Rousseau. Will continue to monitor.
--- NOTE | 2018-12-31 17:30 | NUR ---
Vacation sedation done at this time. Patient became very tachypneic during the sedation trial. Sedation resumed at this time.
--- NOTE | 2018-12-31 18:54 | NUR ---
REPORT GIVEN TO XI GRADY. PLAN OF CARE REVIEWED. LINES, TUBES, IV GTTS AND VENT SETTINGS REVIEWED.
--- NOTE | 2018-12-31 21:38 | NUR ---
PER E CARE TATI'S REQUEST TO HELP WITH BREATHING. RR AT 21-30 AT THIS TIME.
--- NOTE | 2018-12-31 22:42 | NUR ---
PER E LINDA DUFFY' REQUEST.
[2019-01-01] VITALS (978 sets, daily range): BP systolic 136–156; BP diastolic 64–76; PULSE 81–93; TEMP 98–98.8; O2SAT 77–100
[2019-01-01 04:40] LABS: MEAN CELL VOLUME 97 fl (80.0-100.0); MEAN CORPUSCULAR HGB CONC 34 g/dl (33.0-37.0); MEAN PLATELET VOLUME 10.4 fl (7.4-10.4); PLATELET COUNT 129 K/mm3 (130-400); RED BLOOD COUNT 2.71 M/mm3 (4.20-5.60); REDCELL DISTRIBUTION WIDTH-CV 14.7 % (11.5-14.5)
[2019-01-01 04:41] LABS: HEMATOCRIT 26.2 % (42.0-52.0); MEAN CORPUSCULAR HEMOGLOBIN 33 pg (27.0-31.0)
--- NOTE | 2019-01-01 04:45 | NUR ---
DRESSING IN BLE CHANGED, NOW CDI.
[2019-01-01 04:54] LABS: ALBUMIN 2.5 gm/dL (3.5-5.0); BILIRUBIN,TOTAL 2.2 mg/dL (0.0-1.0); CALCIUM 8.2 mg/dL (8.4-10.2); CREATININE, serum 1.43 (0.66-1.25); MAGNESIUM 2.4 mg/dL (1.6-2.3); PHOSPHOROUS 2.2 mg/dL (2.5-4.5)
[2019-01-01 04:56] LABS: ARTERIAL BLD GAS O2 SATURATION 94.5 % (92-100); ARTERIAL BLD GAS TCO2 CT 20.4; ARTERIAL BLOOD GAS BASE EXCESS -3.8 (-2-2); ARTERIAL BLOOD GAS HCO3 19.5 meq/L (22-26); ARTERIAL BLOOD GAS PCO2 29.5 mmHg (35-45); ARTERIAL BLOOD GAS PO2 76.6 mmHg (80-100); ARTERIAL BLOOD GAS pH 7.44 (7.35-7.45)
[2019-01-01 05:29] LABS: BAND 3 % (0-10); LYMPHOCYTE 5 % (20.0-51.0); METAMYELOCYTE 1 % (0-0); NEUTROPHILS 87 % (42.0-75.2); NUCLEATED RED BLOOD CELL 1 (0-6)
[2019-01-01 05:31] LABS: PLATELET ESTIMATE DECREASED (NORMAL)
[2019-01-01 05:33] LABS: TARGET CELLS 2+
--- NOTE | 2019-01-01 07:10 | NUR ---
Report recieved from Zaida LAYNE. RT in with patient at this time for EEG. Will verify lines, medications and ET placement when done.
--- NOTE | 2019-01-01 19:30 | NUR ---
Bedside report given to Shaista LAYNE by Leslie LAYNE. present for report. Medications and lines verified. Patient repositioned at this time and pericare done.
--- NOTE | 2019-01-01 19:30 | NUR ---
Bedside report received from Leslie LAYNE. Pts spouse at bedside. Coccyx assessed as well as ETT/ OG and IV pumps.
--- NOTE | 2019-01-01 22:00 | NUR ---
Due to improvement in OG residuals tube feeds were restarted at prior settings 40ml/hr with 30ml flushes Q4hr.
--- NOTE | 2019-01-01 22:45 | NUR ---
Changed chest tube collection chamber at this time.
[2019-01-02] VITALS (642 sets, daily range): BP systolic 135–165; BP diastolic 67–82; PULSE 85–95; TEMP 97.3–98.7; O2SAT 80–100
[2019-01-02 05:42] LABS: MEAN CELL VOLUME 100 fl (80.0-100.0); MEAN CORPUSCULAR HGB CONC 34 g/dl (33.0-37.0); MEAN PLATELET VOLUME 10.8 fl (7.4-10.4); PLATELET COUNT 134 K/mm3 (130-400); RED BLOOD COUNT 2.68 M/mm3 (4.20-5.60); REDCELL DISTRIBUTION WIDTH-CV 15.3 % (11.5-14.5)
[2019-01-02 05:50] LABS: ALBUMIN 2.4 gm/dL (3.5-5.0); BILIRUBIN,TOTAL 1.9 mg/dL (0.0-1.0); CREATININE, serum 1.18 (0.66-1.25); MAGNESIUM 2.2 mg/dL (1.6-2.3); PHOSPHOROUS 2.7 mg/dL (2.5-4.5); POTASSIUM 3.5 mmol/L (3.4-5.0); TOTAL PROTEIN 5.9 gm/dL (6.4-8.2)
[2019-01-02 05:54] LABS: ARTERIAL BLD GAS O2 SATURATION 96.4 % (92-100); ARTERIAL BLD GAS TCO2 CT 22.5; ARTERIAL BLOOD GAS BASE EXCESS -1.3 (-2-2); ARTERIAL BLOOD GAS HCO3 21.6 meq/L (22-26); ARTERIAL BLOOD GAS PCO2 30.2 mmHg (35-45); ARTERIAL BLOOD GAS PO2 92.5 mmHg (80-100); ARTERIAL BLOOD GAS pH 7.47 (7.35-7.45)
[2019-01-02 06:08] LABS: HEMATOCRIT 26.7 % (42.0-52.0); HEMOGLOBIN 9.1 g/dl (13.5-18.0); MEAN CORPUSCULAR HEMOGLOBIN 34 pg (27.0-31.0)
--- NOTE | 2019-01-02 07:24 | NUR ---
VT REDUCED TO 400ML PER DR LEMUS
--- NOTE | 2019-01-02 07:40 | NUR ---
Report provided to Moni LAYNE. Pt resting in bed at this time with no sedation although continues to be intubated.
[2019-01-02 07:45] LABS: BAND 2 % (0-10); LYMPHOCYTE 8 % (20.0-51.0); NEUTROPHILS 90 % (42.0-75.2); NUCLEATED RED BLOOD CELL 1 (0-6); PLATELET ESTIMATE NORMAL (NORMAL); POIKILOCYTOSIS 1+
[2019-01-02 07:46] LABS: ANISOCYTOSIS 1+; POLYCHROMASIA 1+; TARGET CELLS 1+
--- NOTE | 2019-01-02 08:00 | NUR ---
PT INTUBATED AND ON VENTILATOR. SEDATION CURRENTLY ON HOLD IN ORDER FOR DR REYNOSO TO ASSESS NEURO STATUS. PT'S EYES OPEN, PT FOLLOWING SIMPLE COMMANDS. PT HAS 3+ EDEMA NOTED TO BILATERAL UPPER EXT WITH WEEPING OF CLEAR FLUID. PT HAS TWO EXCORIATED AREAS NOTED ON EITHER SIDE OF BUTTOCKS NEAR RECTUM, AROUND 1-2 CM IN DIAMATER. PT'S SCROTUM EDEMATOUS. AREA ELEVATED. PT HAS MUTILPLE OPEN AREAS TO BLE. DRESSING IN PLACE TO BILATERAL LOWER EXTREMITIES. HEELS ELEVATED. HEEL PROTECTORS IN PLACE. PT HAS SEVERAL PIN SIZE SCABS NOTED TO BRIDGE OF NOSE.
--- NOTE | 2019-01-02 16:18 | NUR ---
WINSTON talked with patients to discuss [facility] and other specialty hosptial choices. Niurka would like us to look at [facility] [place] after reviewing the options. WINSTON made referral to Otf at [facility]. He will start the process.
--- NOTE | 2019-01-02 21:54 | NUR ---
DRESSING ON LEFT CHEST TUBE SITE SOILED, DRESSING REMOVED, SITE CLEANSED AND NEW DRESSING ON. NOW CDI. SKIN AROUND THE SITE IS NOTED TO BE RED AND HAS SOME WOUNDS/ABRASION FROM TAPE IRRITATION, NO BLEEDING NOTED THOUGH AND LEFT OPEN TO AIR AT THIS TIME. OTHER SKIN ISSUES FOLLOWS: NOSE, LEFT ELBOW, KNEES/SEE - SCABBING COCCYX - ESXCORIATION, ABRASION, PINK BUE - BRUISING, WEEPING, EDEMATOUS HANDS - SWOLLEN AND PUFFY BLE - STAGE 2 ULCER AT THE BACK OF THE BOTH LEGS, DRESSING IN PLACE HEELS - PEELING, BOOTS ON L CHEST - SMALL ABRASION SCROTUM - RED AND SWOLLEN
[2019-01-03] VITALS (628 sets, daily range): BP systolic 122–140; BP diastolic 66–74; PULSE 96–100; TEMP 97.9–98.4; O2SAT 78–100
--- NOTE | 2019-01-03 05:00 | NUR ---
PROPOFOL OFF AT [address] LEMUS'S ORDER.
[2019-01-03 05:28] LABS: ARTERIAL BLOOD GAS HCO3 21.7 meq/L (22-26); ARTERIAL BLOOD GAS pH 7.46 (7.35-7.45)
[2019-01-03 05:29] LABS: ARTERIAL BLD GAS TCO2 CT 22.6; ARTERIAL BLOOD GAS BASE EXCESS -1.4 (-2-2)
--- NOTE | 2019-01-03 05:29 | NUR ---
PROPOFOL OFF SINCE [address] LEMUS'S ORDER.
[2019-01-03 05:58] LABS: ALBUMIN 2.5 gm/dL (3.5-5.0); BILIRUBIN,TOTAL 1.8 mg/dL (0.0-1.0); CREATININE, serum 1.24 (0.66-1.25); MAGNESIUM 2.4 mg/dL (1.6-2.3); PHOSPHOROUS 3.1 mg/dL (2.5-4.5); POTASSIUM 3.9 mmol/L (3.4-5.0); TOTAL PROTEIN 6.1 gm/dL (6.4-8.2)
--- NOTE | 2019-01-03 06:48 | NUR ---
DR. LEMUS AT BEDSIDE, WILL EXTUBATE PATIENT TODAY. RT CALLED AND NOTIFIED.
--- NOTE | 2019-01-03 07:05 | NUR ---
DR. LEMUS AT BEDSIDE, NIF OBTAINED AT -26. PT EXTUBATED, PLACED ON 5L OXYMASK. VITALS ARE HR 98, WSAT 96%, RR 24.
--- NOTE | 2019-01-03 07:15 | NUR ---
PT EXTUBATED AT 0700.
--- NOTE | 2019-01-03 08:00 | NUR ---
SHIFT ASSESSMENT COMPLETE AND PATIENT REPOSITIONED. PLAN OF CARE REVIEWED WITH PATIENT AND FAMILY. BED IN LOW POSITION, CALL LIGHT IN REACH. FAMILY QUESTIONS AND CONCERNS ADRESSED. VITALS STABLE. WILL CONTINUE TO MONITOR.
--- NOTE | 2019-01-03 10:10 | NUR ---
Initial visit; Patient resting, Silk Screen Painter spoke with family member letting her know of the availability of spiritual care at our hospital. She assured Silk Screen Painter she would call on her if needed.
[2019-01-03 10:27] LABS: INR 1.5 (0.8-3.0); PROTHROMBIN TIME 17.2 SECONDS (9.7-12.8)
--- NOTE | 2019-01-03 10:38 | NUR ---
WINSTON attended clinical rounding. Patient was extubated this am at 700. Patients is in room reports she would be more comfortable with [facility] as she has family there she could stay with. WINSTON talked with [facility] and informed that he could dc there as soon as tomorrow. Update faxed.
--- NOTE | 2019-01-03 11:05 | NUR ---
Patients talked with Otf and is ok with [facility]. Otf is submitting information for prior auth.
--- NOTE | 2019-01-03 12:00 | NUR ---
PATIENT REASSESSED AND REPOSITIONED. PATIENT WAS INCONTINENT OF BOWEL AND CLEANED. HEELS FLOATED. PILLOW UNDER EACH ARM. VITALS STABLE. WILL CONTINUE TO MONITOR.
--- NOTE | 2019-01-03 12:20 | NUR ---
CHEST TUBE COLLECTION CHAMBER AND TUBING CHANGED. PATIENT END OF TUBE CLAMPED PRIOR TO DISCONNECTION. NO LEAKS NOTED AT CONNECTION SITE BETWEEN PATIENT AND COLLECTION CHAMBER TUBING. PATIENT END OF TUBING UNCLAMPED FOLLOWING RECONNECTION OF TUBING TO THE NEW SET. WILL CONTINUE TO MONITOR.
--- NOTE | 2019-01-03 16:00 | NUR ---
PATIENT REASSESSED, REPOSITIONED. PATIENT FOUND TO BE INCONTINENT OF BOWEL WITH REPOSITIONING, PATIENT CLEANED AND PERICARE AND CATHETER CARE PROVIDED. VITAL SIGNS STABLE. WILL CONTINUE TO MONITOR.
--- NOTE | 2019-01-03 19:36 | NUR ---
Bedside report received from XI Love and XI Nelson. Patient repositioned and josé miguel-care performed at this time. Patient heard saying "stop it" during repostioning. Attempted to place in a more comfortable position. Will continue to monitor for pain.
--- NOTE | 2019-01-03 19:37 | NUR ---
REPORT GIVEN TO XI VERA.
--- NOTE | 2019-01-03 20:15 | NUR ---
Assessment complete; patient awake and will follow simple commands. Squeezed hands on command and wriggled fingers and toes upon request. Patient also attempts to verbalize, however speech is very hoarse and quiet and this nurse is unable to understand anything except an occasional single word. Legs are currently wrapped in dressing and did not remove bandages at this time. Patient grimaces and makes audible noises of discomfort when legs are touched. Will continue to monitor.
--- NOTE | 2019-01-03 21:45 | NUR ---
Chest tube assessed; no fluctuations in water seal noted. Traced back line and a kink was found in the tubing. Straightened line and fluctuations observed. Will continue to monitor.
[2019-01-04] VITALS (723 sets, daily range): BP systolic 132–152; BP diastolic 60–79; PULSE 92–139; TEMP 97.5–98.7; O2SAT 79–100
--- NOTE | 2019-01-04 02:00 | NUR ---
Bedbath provided. Changed dressing to bilateral lower extremities. Wound beds moist and pink with skin sloughing off in areas. Legs are painful to touch and patient observed grimacing and stating ouch when touching wounds. Petrolium guaze placed directly on wound bed and kerlex over the guaze. Wrapped in guaze from foot to mid calf.
[2019-01-04 05:45] LABS: HEMOGLOBIN 10.1 g/dl (13.5-18.0); MEAN CELL VOLUME 101 fl (80.0-100.0); MEAN CORPUSCULAR HEMOGLOBIN 34 pg (27.0-31.0); MEAN CORPUSCULAR HGB CONC 33 g/dl (33.0-37.0); MEAN PLATELET VOLUME 11.5 fl (7.4-10.4); PLATELET COUNT 176 K/mm3 (130-400); REDCELL DISTRIBUTION WIDTH-CV 17.7 % (11.5-14.5)
[2019-01-04 05:56] LABS: HEMATOCRIT 30.3 % (42.0-52.0)
[2019-01-04 06:02] LABS: ALBUMIN 2.5 gm/dL (3.5-5.0); BILIRUBIN,TOTAL 2.1 mg/dL (0.0-1.0); CREATININE, serum 1.22 (0.66-1.25); POTASSIUM 3.9 mmol/L (3.4-5.0); TOTAL PROTEIN 6.1 gm/dL (6.4-8.2)
--- NOTE | 2019-01-04 06:07 | NUR ---
E-ICU notified about critical WBC this morning. Kathrine on Vanco and zosyn. No elevated temps recorded this shift. Awaiting further orders.
[2019-01-04 06:19] LABS: BAND 1 % (0-10); LYMPHOCYTE 2 % (20.0-51.0); NEUTROPHILS 91 % (42.0-75.2); PLATELET ESTIMATE NORMAL (NORMAL)
[2019-01-04 06:20] LABS: ANISOCYTOSIS 1+
--- NOTE | 2019-01-04 07:00 | NUR ---
Bedside report received from XI Porter. Patient sleeping with oxymask in place at this time. He is turned and repositioned. Care assumed at this time. at bedside and has already spoken to Dr. Rousseau this morning.
--- NOTE | 2019-01-04 11:00 | NUR ---
PATIENT AND I LEAVE FOR MRI AT THIS TIME.
[2019-01-04 11:25] LABS: PLEURAL FLUID RBC 2000 /mm3 (0-0); PLEURAL FLUID WBC 5830 /mm3
[2019-01-04 11:36] LABS: PLEURAL FLUID APPEARANCE CLOUDY; PLEURAL FLUID COLOR YELLOW
--- NOTE | 2019-01-04 11:45 | NUR ---
PATIENT AND I RETURN FROM MRI AT THIS TIME.
--- NOTE | 2019-01-04 13:20 | NUR ---
WINSTON received a call from [facility] stating [facility] has denied patients claim. peer to peer information was obtained. P# [id number] Ref# [id number]. WINSTON talked with patients and Dr Barrera about denial. Dr schafer complete peer to peer on patient. Patients is agreeable to the plan.
--- NOTE | 2019-01-04 16:29 | NUR ---
ATTEMPTS TO PLACE DOBHOFF NG TUBE WERE MADE BY [address] THOMSON, HIMSELF. WE WERE UNABLE TO PLACE DOBHOFF AFTER MULITPLE ATTEMPTS. DURING ATTEMPTS TO PLACE TUBE, PATIENT ENTERED INTO A TACHYCARDIC IRREGULAR RHYTHM. DR. THOMSON GIVES VERBAL ORDER TO DISCONTINUE TRYING TO PLACE DOBHOFF AND CALL HIM WITH AN UPDATE IN AN HOUR REGARDING PATIENT'S HEART RATE AND RHYTHM. CURRENTLY PATIENT'S HR IS 144 AND RHYTHM IS IRREGULAR. WILL CONTINUE TO MONITOR.
--- NOTE | 2019-01-04 16:30 | NUR ---
Dr. Mckeon in to see patient. He examines Chest tube insertion site. He redresses the insertion site with clean bandage. He also orders for chest tube to return to -20 cm suction.
--- NOTE | 2019-01-04 19:20 | NUR ---
Bedside report received from Mayuri LAYNE. Pts spouse Niurka is at bedside during report. During conversation with spouse, Niurka began to get a little tearful talking about the different emotions regaring being in the hospital. Questions were encouraged although denied any at this time. Pt resting in bed with eyes closed. Snoring respirations noted at this time.
--- NOTE | 2019-01-04 19:35 | NUR ---
Emily from pharmacy called regarding changes that Dr. Stephen reported to pharmacy. D5W now ordered and d/c pharmacy prepared 1/4NS as well as Accuchecks Q4 with JOHNNIE from Q6hr checks. Verbal understanding provided.
--- NOTE | 2019-01-04 20:14 | NUR ---
REPORT GIVEN TO XI ELIZALDE. CARE TRANSFERRED AT THIS TIME.
--- NOTE | 2019-01-04 21:00 | NUR ---
Pt assessment completed. Pt resting in bed at this time with all 4 extremities propped up on pillows. Pt will not follow commands at this time. Will open eyes to pain although is not noted to track/ make eye contact with staff. Oxymask in place. Heel protectors in place bilaterally with dressings intact. Left leg noted to have scant dried drainage present. Feet bilaterally have scattered areas of discoloration with scattered areas of peeling skin. Tips of toes assessed for cap refill with dried skin that w sensation of crunching when pressed although skin returns to normal appearance following palpation. Due to open wounds on ankles, PT pulses are difficult to find with pt withdrawing from pain when touched.
[2019-01-05] VITALS (1020 sets, daily range): BP systolic 129–155; BP diastolic 60–70; PULSE 86–100; TEMP 97.6–99.1; O2SAT 82–100
--- NOTE | 2019-01-05 00:30 | NUR ---
Pt assessment complete. Pt is more responsive in following commands at this time. Right arm noted to leave pillow although will fall back to bed quickly. Pt kept repeating to nurse "I need to sleep." Other words were stated to staff members although neither this nurse or associate were able to understand after pt repeating it multiple times. Stimulation attempted to be decreased with lights out at this time in attempts to allow pt time to rest.
--- NOTE | 2019-01-05 05:35 | NUR ---
Left IJ TLC removed at this time. Pt in a supine position laying flat with head turned away from catheter site. This nurse use sterile technique once removal of central line dressing. Central line dressing change kit was used during this procedure. Due to pt intermittently being unable to follow instructions and at this time observed with snoring respirations with eyes closed, following removal of 4 sutures, the TLC was removed in 3 seperate pulls, each with pt expiration. Sterile 2x2's held in place for 2-3 minutes and held in place with an occlusive dressing. Just 1-2 minutes later dressing was noted to have drainage present so pressure for another 5 minutes was held. Will continue to assess.
[2019-01-05 05:38] LABS: BASO % 0.1 % (0.0-2.0); EOS # 0.4 (0.0-0.7); GRAN # 16.7 (1.4-6.5); GRAN % 86.9 % (42.2-75.2); LYMPH % 5.1 % (20.0-51.0); MEAN CELL VOLUME 103 fl (80.0-100.0); MEAN CORPUSCULAR HGB CONC 32 g/dl (33.0-37.0); MEAN PLATELET VOLUME 11.5 fl (7.4-10.4); MONO # 0.9 (0.1-0.6); MONO % 4.8 % (1.7-9.3); PLATELET COUNT 152 K/mm3 (130-400); RED BLOOD COUNT 2.86 M/mm3 (4.20-5.60); REDCELL DISTRIBUTION WIDTH-CV 18.1 % (11.5-14.5)
[2019-01-05 05:42] LABS: HEMATOCRIT 29.5 % (42.0-52.0); HEMOGLOBIN 9.5 g/dl (13.5-18.0); MEAN CORPUSCULAR HEMOGLOBIN 33 pg (27.0-31.0)
[2019-01-05 05:49] LABS: ALBUMIN 2.3 gm/dL (3.5-5.0); BILIRUBIN,TOTAL 1.8 mg/dL (0.0-1.0); CREATININE, serum 1.16 (0.66-1.25); MAGNESIUM 2.5 mg/dL (1.6-2.3); PHOSPHOROUS 3.7 mg/dL (2.5-4.5); POTASSIUM 3.5 mmol/L (3.4-5.0); TOTAL PROTEIN 5.7 gm/dL (6.4-8.2)
--- NOTE | 2019-01-05 06:00 | NUR ---
Pt dressing from IJ TLC removal assessed with no further drainage noted. Pt placed in semi fowlers position.
--- NOTE | 2019-01-05 06:05 | NUR ---
Continued assessment of central line removal dressing following pt repositioning to semi fowlers positioning with no continued drainage noted at this time.
--- NOTE | 2019-01-05 07:10 | NUR ---
Received bedside report from XI Noonan.
--- NOTE | 2019-01-05 07:10 | NUR ---
Report provided to Shantelle LAYNE. Dr. Rousseau at bedside with pt and pt spouse.
--- NOTE | 2019-01-05 11:30 | NUR ---
WINSTON spoke with [facility] and [facility] this am. They are waiting on [facility] to be completed. [facility] is still able to accept if insurance approves. Wound care was consulted and they are starting tube feeds for patient. WINSTON talked with patients and explained what was going on for placement. will continue to follow.
--- NOTE | 2019-01-05 19:47 | NUR ---
RECEIVED REPORT FROM SAUNDRA AND XI HERNÁNDEZ.
--- NOTE | 2019-01-05 21:28 | NUR ---
PATIENT RESTING WHILE FAMILY IN THE ROOM. MEDICATIONS AND LINES VARIFIED. WILL CONTINUE TO MONITOR PATIENT.
[2019-01-06] VITALS (1001 sets, daily range): BP systolic 148–164; BP diastolic 68–96; PULSE 84–102; TEMP 97.7–99; O2SAT 87–100
[2019-01-06 05:04] LABS: BASO % 0.1 % (0.0-2.0); EOS # 0.5 (0.0-0.7); EOS % 2.5 % (0-4.0); GRAN # 16.4 (1.4-6.5); GRAN % 86.3 % (42.2-75.2); HEMATOCRIT 30.2 % (42.0-52.0); HEMOGLOBIN 9.7 g/dl (13.5-18.0); LYMPH # 1.1 (1.2-3.4); MEAN CELL VOLUME 105 fl (80.0-100.0); MEAN CORPUSCULAR HEMOGLOBIN 34 pg (27.0-31.0); MEAN CORPUSCULAR HGB CONC 32 g/dl (33.0-37.0); MEAN PLATELET VOLUME 11.7 fl (7.4-10.4); MONO # 0.8 (0.1-0.6); MONO % 4.3 % (1.7-9.3); PLATELET COUNT 152 K/mm3 (130-400); RED BLOOD COUNT 2.89 M/mm3 (4.20-5.60); REDCELL DISTRIBUTION WIDTH-CV 17.8 % (11.5-14.5)
[2019-01-06 05:13] LABS: ALBUMIN 2.3 gm/dL (3.5-5.0); BILIRUBIN,TOTAL 1.9 mg/dL (0.0-1.0); CREATININE, serum 1.23 (0.66-1.25); POTASSIUM 4.2 mmol/L (3.4-5.0); TOTAL PROTEIN 5.9 gm/dL (6.4-8.2)
--- NOTE | 2019-01-06 07:30 | NUR ---
Report recieved from XI Hackett. Patient sleeping at this time. Left chest tube patent with serous drainage noted. Dressing dry with bottom edge peeling up slightly. Insertion site covered. Batista with positive UO noted. ANDRIA PICC uncomplicated with lumens locked. Bed in low and locked position, call light within reach, rails up x3, bed alarm armed. Care assumed.
--- NOTE | 2019-01-06 07:30 | NUR ---
GAVE REPORT TO XI GARCIA.
[2019-01-06 17:54] LABS: TOTAL PROTEIN,PLEURAL FLUID < 2.0 gm/dL
--- NOTE | 2019-01-06 23:05 | NUR ---
CALLED EICU REGARDING PATIENTS INCREASED HEART RATE, RESPIRATIONS, AND AGITATION. XI LARSEN SAID SHE WOULD DISCUSS FINDINGS WITH THE PHYSICIAN AND FAX OVER ORDERS. WILL CONTINUE TO MONITOR PATIENT IN THE MEAN TIME.
[2019-01-07] VITALS (261 sets, daily range): BP systolic 95–137; BP diastolic 54–71; PULSE 90–112; TEMP 97.5–98.5; O2SAT 88–100
--- NOTE | 2019-01-07 00:08 | NUR ---
PATIENT IS BREATHING ALOT FASTER COMPARED TO WHEN I CAME ON SHIFT. PATIENTS LUNG AND HEART SOUNDS SOUND THE SAME BEFORE. CONTACTED EICU REGARDING PATIENTS ASSESSMENT FINDINGS. WITING ON THE PHYSICIAN TO FAX OVER ORDERS. HAVE GIVEN THE PATIENT IV MORPHINE FOR PAIN AND IV ATIVAN FOR AGITATION. WILL CONTINUE TO MONITOR THE PATIENT.
--- NOTE | 2019-01-07 01:00 | NUR ---
CALLED DEZ, PATIENTS TO INFORM HER OF PATIENTS DECLINING STATUS AND TO INFORM HER THAT WE WERE GOING TO GO THROUGH WITH INTUBATION. DID NOT ANSWER.
--- NOTE | 2019-01-07 01:20 | NUR ---
PATIENT WAS SUCESSFULLY INTUBATED AT THIS TIE. DURING INTUBATION, PATIENT RECEIVED 2 MG OF VERSED (0117), 10 MG VECRONIUM (0118), AND 100 MCG OF FENTANYL (0125). PATIENT DID EXPERIENCE HYPOTENSION AFTER INTUBATION WITH SYSTOLIC PRESSURES IN THE 50. PATIENT RECEIVED A 1000 ML BOLUS OF LR AND RECOVERED WELL. PRESSURES ARE NOW [id number] IN THE 130'S SYSTOLIC. PATIENT DOES HAVE PROPOFOL ON STANDY IF AGITATION ARISES. WILL CONTINUE TO MONITOR PATIENT. PATIENT IS BEING TRANSFERED TO [facility].
[2019-01-07 01:50] LABS: MEAN CELL VOLUME 107 fl (80.0-100.0); MEAN CORPUSCULAR HGB CONC 32 g/dl (33.0-37.0); MEAN PLATELET VOLUME 11.3 fl (7.4-10.4); PLATELET COUNT 184 K/mm3 (130-400); RED BLOOD COUNT 2.83 M/mm3 (4.20-5.60); REDCELL DISTRIBUTION WIDTH-CV 18.1 % (11.5-14.5)
[2019-01-07 01:51] LABS: HEMATOCRIT 30.3 % (42.0-52.0); HEMOGLOBIN 9.6 g/dl (13.5-18.0); MEAN CORPUSCULAR HEMOGLOBIN 34 pg (27.0-31.0)
[2019-01-07 01:55] LABS: INR 1.3 (0.8-3.0)
[2019-01-07 01:59] LABS: ALBUMIN 2.3 gm/dL (3.5-5.0); BILIRUBIN,TOTAL 1.7 mg/dL (0.0-1.0); CALCIUM 8.1 mg/dL (8.4-10.2); CREATININE, serum 1.39 (0.66-1.25); POTASSIUM 4.8 mmol/L (3.4-5.0); TOTAL PROTEIN 5.9 gm/dL (6.4-8.2)
[2019-01-07 02:14] LABS: BAND 2 % (0-10); EOSINOPHIL 2 % (0-4); HYPOCHROMIA 1+; LYMPHOCYTE 3 % (20.0-51.0); NEUTROPHILS 90 % (42.0-75.2); PLATELET ESTIMATE NORMAL (NORMAL)
[2019-01-07 02:15] LABS: ANISOCYTOSIS 1+; TARGET CELLS 1+
[2019-01-07 02:35] LABS: ARTERIAL BLOOD GAS BASE EXCESS -6.6 (-2-2); ARTERIAL BLOOD GAS HCO3 19.1 meq/L (22-26); ARTERIAL BLOOD GAS PCO2 38.9 mmHg (35-45); ARTERIAL BLOOD GAS PO2 71.1 mmHg (80-100)
[2019-01-07 03:14] LABS: ARTERIAL BLD GAS O2 SATURATION 93.6 % (92-100); ARTERIAL BLD GAS TCO2 CT 23.2
[2019-01-07 03:21] LABS: ARTERIAL BLOOD GAS BASE EXCESS -1.2 (-2-2); ARTERIAL BLOOD GAS HCO3 22.2 meq/L (22-26); ARTERIAL BLOOD GAS PCO2 33.1 mmHg (35-45); ARTERIAL BLOOD GAS PO2 72.6 mmHg (80-100)
--- NOTE | 2019-01-07 05:01 | NUR ---
PATIENT IS NOT CURRENTLY ON SEDATION AT THIS TIME. SEDATION VACATION DOES NOT APPLY.
[2019-01-07 05:05] LABS: HEMATOCRIT 30.8 % (42.0-52.0); HEMOGLOBIN 9.8 g/dl (13.5-18.0)
--- NOTE | 2019-01-07 07:58 | NUR ---
gave report to radha pak.
--- NOTE | 2019-01-07 08:47 | NUR ---
REPORT CALLED TO ANIA LAYNE ON SURGICAL ICU IN [facility].
--- NOTE | 2019-01-07 09:30 | NUR ---
EMS ARRIVED TO TRAN[facility] REPORT GIVEN TO EMS CREW ALONG WITH TRANSFER PACKET. ASSISTED EMS IN TRANSFERING PT TO EMS COT. CHEST TUBE PLACED TO [facility] D/T EMS SUCTION UNABLE TO HAVE SUCTOIN AT 20CM. DR THOMSON AWARE. 6968 EMS CREW READY TO TAKE PATIENT.
== END 2019-01-07 09:40 | disposition short-term general hospital (02) | DRG 207 ==
LOC: COL.ER 16:33 → SURG 21:28 → ICU 12-29 02:46 → SURG 12-29 02:46 → ICU 12-29 02:46
PROVIDERS: Emergency Medicine; Internal Medicine; Internal Medicine Nephrology; Internal Medicine Pulmonary Disease; Nurse Practitioner; Nurse Practitioner Family; Physician Assistant; Surgery; ADMIT Hospitalist
PROC: 0W9B00Z Drainage of Left Pleural Cavity with Drainage Device, Open Approach (ICD-10-PCS; principal; 2018-12-26 11:15)
PROC: 5A1955Z Respiratory Ventilation, Greater than 96 Consecutive Hours (ICD-10-PCS; 2018-12-29)
PROC: 0BH17EZ Insertion of Endotracheal Airway into Trachea, Via Natural or Artificial Opening (ICD-10-PCS; 2018-12-29)
PROC: 05HN33Z Insertion of Infusion Device into Left Internal Jugular Vein, Percutaneous Approach (ICD-10-PCS; 2018-12-29)
PROC: 02HV33Z Insertion of Infusion Device into Superior Vena Cava, Percutaneous Approach (ICD-10-PCS; 2019-01-04)
PROC: 0BH17EZ Insertion of Endotracheal Airway into Trachea, Via Natural or Artificial Opening (ICD-10-PCS; 2019-01-07)
PROC: 5A1935Z Respiratory Ventilation, Less than 24 Consecutive Hours (ICD-10-PCS; 2019-01-07)
DX: S27.1XXA Traumatic hemothorax, initial encounter (principal); A41.9 Sepsis, unspecified organism; G93.41 Metabolic encephalopathy; J96.01 Acute respiratory failure with hypoxia; J18.1 Lobar pneumonia, unspecified organism; E87.1 Hypo-osmolality and hyponatremia; S22.41XA Multiple fractures of ribs, right side, initial encounter for closed fracture; N17.9 Acute kidney failure, unspecified; L03.116 Cellulitis of left lower limb; L03.115 Cellulitis of right lower limb; D62 Acute posthemorrhagic anemia; E44.0 Moderate protein-calorie malnutrition; L97.909 Non-pressure chronic ulcer of unspecified part of unspecified lower leg with unspecified severity; E87.3 Alkalosis; F10.239 Alcohol dependence with withdrawal, unspecified; E07.9 Disorder of thyroid, unspecified; I10 Essential (primary) hypertension; E88.09 Other disorders of plasma-protein metabolism, not elsewhere classified; R73.9 Hyperglycemia, unspecified; B35.6 Tinea cruris; K80.20 Calculus of gallbladder without cholecystitis without obstruction; E83.39 Other disorders of phosphorus metabolism; Y92.009 Unspecified place in unspecified non-institutional (private) residence as the place of occurrence of the external cause; J44.9 Chronic obstructive pulmonary disease, unspecified; E83.42 Hypomagnesemia; Z78.1 Physical restraint status; W19.XXXA Unspecified fall, initial encounter; Z68.26 Body mass index [BMI] 26.0-26.9, adult; Y90.0 Blood alcohol level of less than 20 mg/100 ml; R74.0 Nonspecific elevation of levels of transaminase and lactic acid dehydrogenase [LDH]; Z91.81 History of falling; Z87.891 Personal history of nicotine dependence
CPT/HCPCS: 99223-AI; 99233-AI; 99239; A4217; A4314; A7041; A7048; C1751; J1650; J1815; J1940; J2060; J2250; J2270; J2405; J2543; J2704; J2765; J2920; J3010; J3370; J3411; J3475; J3480; J7030; J7040; J7050; J7070; J7120; J7131; P9047; Q9967